=== PATIENT | male | born 1965 | race Caucasian/White ===

== ENCOUNTER 2017-01-08 14:56 | Emergency (ER) | payer BC ==
[~2017-01-08] VITALS: Ht 188 cm; Wt 64.1 kg
[2017-01-08 15:01] VITALS: Ht 188 cm; Wt 64.1 kg
[2017-01-08] MEDS ORDERED: KETOROLAC TROMETHAMINE 60 MG/2 ML VIAL IM STA (15:22)
[2017-01-08] MEDS ORDERED: DEXAMETHASONE **PF** INJ 10 MG/ML VIAL IM ONE (15:30)
[2017-01-08] MEDS ORDERED: LINICRE52 TOP (15:42)
[2017-01-08] MEDS ORDERED: NAPR1TAB9 PO (15:42)
[2017-01-08] MEDS ORDERED: ACET-1256 PO (15:42)
[2017-01-08] MEDS ORDERED: IBUP-1050 PO (15:42)
--- NOTE | 2017-01-08 16:31 | DIAGNOSTIC IMAGING REPORT ---
R SHOULDER MIN 2 VIEWS ROUTINE CLINICAL HISTORY: Right shoulder pain. No recent trauma. COMPARISON: None FINDINGS: Alignment of the right shoulder is anatomic. No fracture or osseous lesion is identified. There is mild glenohumeral joint osteoarthritis and moderate acromioclavicular joint osteoarthritis. IMPRESSION: 1. No acute fracture. 2. Moderate osteoarthritis of the right acromioclavicular joint and mild arthritis of the right glenohumeral joint. Electronically signed by: Arnold Merritt M.D. 01/08/2017 4:29 PM Dictated Date/Time: 01/08/2017 4:28 PM
--- NOTE | 2017-01-08 16:33 | DIAGNOSTIC IMAGING REPORT ---
C-SPINE ROUTINE 4 OR 5 VIEWS CLINICAL HISTORY: Right side neck pain into right shoulder. COMPARISON STUDY: Cervical spine radiographs October 22, 2013. FINDINGS: No cervical spine fracture is present. Slight retrolisthesis of C5 on C6 is unchanged. Moderate disc space narrowing at C5-C6 is noted. There is anterior osteophytosis at C6-C7. There is moderate bilateral C5-C6 bony neural foraminal narrowing. IMPRESSION: 1. No cervical spine fracture or subluxation. 2. Moderate degenerative disc disease at C5-C6. Electronically signed by: Arnold Merritt M.D. 01/08/2017 4:31 PM Dictated Date/Time: 01/08/2017 4:29 PM
[2017-01-08] MEDS ORDERED: PRED50TA PO (16:52)
[2017-01-08] MEDS ORDERED: CYCL10TA6 PO (16:52)
[2017-01-08] MEDS ORDERED: OXYC1TAB3 PO (16:52)
[2017-01-08] MEDS ORDERED: OXYCODONE IR HOME PACK PO ONE (17:00)
[2017-01-08] MEDS ORDERED: FLEXERIL HOME PACK 10 MG VIAL PO ONE (17:00)
[2017-01-08 17:10] VITALS: BP 109/77; PULSE 71; TEMP 36.4; O2SAT 98
--- NOTE | 2017-01-08 17:29 | EMERGENCY ROOM VISIT NOTE ---
History First contact with patient: 15:05 Chief Complaint: BACK PAIN Stated Complaint: PAIN IN BACK History of Present Illness The patient is a 51 year old male who presents to the Emergency Room with complaints of right-sided back pain from the level of his lower neck into his right shoulder. The patient states that he has had slowly worsening pain over the past 4 or 5 days without distinct injury or trauma. 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 The patient does not recall injuries or pain like this in the past. No numbness or paresthesias. No fever or chills. He is able to breathe as normal. His symptoms distinctly worsened with certain range of motion. He is describing spasm like episodes, and states that naproxen at home has not improved his symptoms. He rates his current discomfort an 8/10. Review of Systems More than 10 systems were reviewed and otherwise negative with the exception of history of present illness. Past Medical/Surgical History Medical Problems: (1) No known problems Family History FH: heart disease Social History Smoking Status: Current Every Day Smoker Alcohol Use: none Drug Use: none Marital Status: Housing Status: lives with family Occupation Status: unemployed Current/Historical Medications Scheduled Acetaminophen (Tylenol), 1,000 MG PO PRN UD Lqtaxvx-Fiwpreu-Nxotlc Salicyl (Bengay Ultra Strength), 1 APPLN TOP PRN Cyclobenzaprine Hcl (Flexeril), 10 MG PO TID Naproxen (Aleve), 440 MG PO PRN UD Oxycodone Immediate Rel Tab (Roxicodone Ir), 1-2 TAB PO Q6 Prednisone (Prednisone), 50 MG PO DAILY Scheduled PRN Ibuprofen (Advil), 800 MG PO BID PRN for Pain Physical Exam Vital Signs Date Time Temp Pulse Resp B/P (MAP) Pulse Ox O2 Delivery O2 Flow Rate FiO2 01/08/17 17:10 36.4 71 16 109/77 98 01/08/17 17:09 36.4 71 16 109/77 98 Room Air 01/08/17 15:01 36.4 71 16 111/80 98 Room Air Physical Exam VITALS: Vitals are noted on the nurse's note and reviewed by myself. Vital signs stable. GENERAL: Well-developed, well-nourished, white male, who is moderately uncomfortable on examination. He is cooperative. NECK: Supple without nuchal rigidity. No lymphadenopathy. No thyromegaly. Cervical spine is nontender. HEART: Regular rate and rhythm without murmurs gallops or rubs. LUNGS: Clear to auscultation bilaterally without wheezes, rales or rhonchi. No retractions or accessory muscle use. ABDOMEN: Positive normal bowel sounds x 4. Soft, nontender, without masses or organomegaly. No guarding or rebound tenderness. MUSCULOSKELETAL: No muscle atrophy, erythema, or edema noted. There is palpable tenderness throughout the mid and inferior right pericervical spine to the medial aspect of the right shoulder. There is minor spasm in this area. The patient does have full range of motion range of motion throughout the right shoulder, however this does cause increased tenderness. No paresthesias. Negative empty can. NEURO: Patient was alert and oriented to person place and time. CN II through XII grossly intact. Medical Decision & Procedures ER Provider Diagnostic Interpretation: C-SPINE ROUTINE 4 OR 5 VIEWS CLINICAL HISTORY: Right side neck pain into right shoulder. COMPARISON STUDY: Cervical spine radiographs October 22, 2013. FINDINGS: No cervical spine fracture is present. Slight retrolisthesis of C5 on C6 is unchanged. Moderate disc space narrowing at C5-C6 is noted. There is anterior osteophytosis at C6-C7. There is moderate bilateral C5-C6 bony neural foraminal narrowing. IMPRESSION: 1. No cervical spine fracture or subluxation. 2. Moderate degenerative disc disease at C5-C6. R SHOULDER MIN 2 VIEWS ROUTINE CLINICAL HISTORY: Right shoulder pain. No recent trauma. COMPARISON: None FINDINGS: Alignment of the right shoulder is anatomic. No fracture or osseous lesion is identified. There is mild glenohumeral joint osteoarthritis and moderate acromioclavicular joint osteoarthritis. IMPRESSION: 1. No acute fracture. 2. Moderate osteoarthritis of the right acromioclavicular joint and mild arthritis of the right glenohumeral joint. Medications Administered Medications (Trade) Dose Ordered Sig/Sandie Route Start Time Stop Time Status Last Admin Dose Admin Dexamethasone Sodium Phosphate (Dexamethasone Inj Pf) 10 mg NOW ONCE IM 01/08/17 15:30 01/08/17 15:31 DC 01/08/17 15:54 10 MG Ketorolac Tromethamine (Toradol Inj) 60 mg NOW STAT IM 01/08/17 15:22 01/08/17 15:23 DC 01/08/17 15:53 60 MG Oxycodone HCl (Roxicodone Immediate Rel 5MG Home Pack) 1 homepack UD ONCE PO 01/08/17 17:00 01/08/17 17:01 DC 01/08/17 16:59 1 HOMEPACK Cyclobenzaprine HCl (FLEXERIL 10MG Home Pack) 1 homepack UD ONCE PO 01/08/17 17:00 01/08/17 17:01 DC 01/08/17 16:59 1 HOMEPACK ED Course Physical exam and history were performed. Nursing notes, EMR, and Medication List were personally reviewed. Patient appears to have right-sided neck into his right shoulder pain worsening over the past few days. His discomfort appears to be musculoskeletal in nature as it is reproducible and he does have spasm in this area. I discussed treatment options with the patient, and elected to give him IM Toradol and IM Decadron here in the department as he drove to the ER and does not have a ride otherwise. I did elect to perform x-rays, which are as above, and do not show an acute fracture. They are suggestive of arthritis, which is to be expected. Overall the patient did not have a tremendous amount pain relief with the Toradol and Decadron. I do not feel comfortable providing the patient stronger pain medication at this time as he will be driving home. I will give the patient home pack of OxyIR and Flexeril. He will be given a continuation prescriptions of the same as well as a prescription of prednisone. The patient will need to follow with his primary care physician for further care and management. He was otherwise invited back to the ER with any new, worsening, or concerning symptoms. The chart was completed utilizing [employer] Speech Voice Recognition Software. Grammatical errors, random word insertions, pronoun errors, and incomplete sentences are an occasional consequence of this system due to software limitations, ambient noise, and hardware issues. Any formal questions or concerns about the content, text, or information contained within the body of this dictation should be directly addressed to the provider for clarification. . Medical Decision Differential diagnosis: Etiologies such as musculoskeletal, disc herniation, fracture, aortic disease, metastatic disease, cord compression, discitis, infection, renal colic, gastrointestinal, acute exacerbation of chronic back pain, sciatica, cauda equina, as well as others were entertained. Impression Primary Impression: Right-sided back pain Departure Information Dispostion Home / Self-Care Condition GOOD Prescriptions Prednisone (Prednisone) 50 Mg Tab 50 MG PO DAILY for 4 Days, #4 TAB Prov: Devyn Reyes PA-C 01/08/17 Cyclobenzaprine Hcl (FLEXERIL) 10 Mg Tab 10 MG PO TID for 7 Days, #21 TAB Prov: Devyn Reyes PA-C 01/08/17 Oxycodone Immediate Rel Tab (ROXICODONE IR) 5 Mg Tab 1-2 TAB PO Q6 for Pain, #20 TAB Prov: Devyn Reyes PA-C 01/08/17 Forms HOME CARE DOCUMENTATION FORM, Work Instructions, Additional Instructions: Patient seen and evaluated today in the emergency department for medica care. Return to work on 01/12/2017. Please excuse. IMPORTANT VISIT INFORMATION Patient Instructions My [facility] Additional Instructions You were seen and evaluated today on an emergency basis only. This is not a substitute for, or an effort to provide, complete comprehensive medical care. It is not possible to recognize and treat all injuries or illnesses in a single emergency department visit. For this reason it is recommended that you followup with your primary care physician this week for ongoing care and evaluation. For baseline pain relief you may alternate ibuprofen and acetaminophen every 4 hours for pain control. Take 600 mg ibuprofen (Advil) and then 4 hours later take 1000 mg acetaminophen (Tylenol). Do not take more than 3000 mg acetaminophen in a single day. Oxycodone (OxyIR) 5mg: Take ONE or TWO pills every SIX hours for breakthrough pain. Avoid alcohol, operating machinery or dangerous equipment, working on ladders or roofs, DRIVING, or situations where being under the influence may be dangerous. It is recommended to use an [id number] stool softener such as Colace, 100mg twice daily while taking this medication to avoid constipation. Flexeril 1 tablet up to 3 times a day as needed for muscle spasms. No driving, working, or alcohol use with Flexeril. Take prednisone as prescribed You are welcome to return to the emergency department anytime with new, worsening, or concerning symptoms. Work Instructions Additional Work Instructions: Patient seen and evaluated today in the emergency department for medical care. Return to work on 01/12/2017. Please excuse.
== END 2017-01-08 17:12 | disposition home or self-care (01) ==
LOC: C.EDB 14:57 → C.EDD 17:12
DX: M54.14 Radiculopathy, thoracic region (principal); Z79.1 Long term (current) use of non-steroidal anti-inflammatories (NSAID); F17.200 Nicotine dependence, unspecified, uncomplicated; Z82.49 Family history of ischemic heart disease and other diseases of the circulatory system